=== PATIENT | female | born 1950 | race Caucasian/White ===

== ENCOUNTER 2019-11-19 06:45 | Day surgery (SDC) | payer MEDICARE ==
[~2019-11-19] VITALS: Ht 152.4 cm; Wt 105.2 kg
[~2019-11-19 06:45] MED LIST: AMOXICILLIN500 MG PO; ANTIBIOT EAR11 AS; ASPIRIN PO; BACTRIM DS1 TAB PO; BAYER ASPIRIN E81 MG PO; BAYER ASPIRIN325 MG PO; CALTRATE 600+D1 CHW PO; CIPRODEX1 ML AS; CIPROFLOXACN500 MG PO; COZAAR50 MG PO; FISH OIL1200 M1 PO; HYDROCHLOROT25 MG PO; LORTAB 7.5 PO; METFORMIN500 MG PO; METOPROLOL50 M1 PO; NAPROSYN500 MG PO; NASONEX50 MCG/AC; PAROXETINE10 MG PO; PEPCID PO
[2019-11-19] MEDS ORDERED: HYDROCHLOROT25 MG PO (07:15)
[2019-11-19 08:35] VITALS: BP 102/54
== END 2019-11-19 08:50 | disposition home or self-care (01) ==
LOC: ENDO 06:45 → ORM 09:00 → ENDO 09:00 → ORM 10:00
PROVIDERS: ATTEND Surgery
PROC: 0DJD8ZZ Inspection of Lower Intestinal Tract, Via Natural or Artificial Opening Endoscopic (ICD-10-PCS; principal; 2019-11-19)
DX: Z12.11 Encounter for screening for malignant neoplasm of colon (principal); D17.5 Benign lipomatous neoplasm of intra-abdominal organs; Z87.19 Personal history of other diseases of the digestive system; Z20.828 Contact with and (suspected) exposure to other viral communicable diseases

== ENCOUNTER 2020-07-05 11:22 | Emergency (ER) | payer MEDICARE ==
[~2020-07-05] VITALS: Ht 152.4 cm; Wt 104.5 kg
[~2020-07-05 11:22] MED LIST changes: +METFORMIN500 M2 PO; -METFORMIN500 MG PO
[2020-07-05] MEDS ORDERED: HYDROCHLORO25 MG/TAB PO (11:48)
[2020-07-05] MEDS ORDERED: PAROXETINE HCL10 MG PO (11:48)
[2020-07-05] MEDS ORDERED: METOPROLOL SUCC50 MG PO (11:49)
[2020-07-05] MEDS ORDERED: FAMOTIDINE20 M3 PO (11:50)
[2020-07-05] MEDS ORDERED: PAROXETINE HYDR20 MG PO (12:07)
[2020-07-05] MEDS ORDERED: METFORMIN HCL1000 MG PO (12:07)
[2020-07-05] MEDS ORDERED: FLEXERIL5 M1 PO (13:40)
[2020-07-05 13:58] VITALS: BP 149/84
== END 2020-07-05 13:58 | disposition home or self-care (01) ==
LOC: ED 11:22
DX: S40.021A Contusion of right upper arm, initial encounter (principal); E11.9 Type 2 diabetes mellitus without complications; I11.0 Hypertensive heart disease with heart failure; I50.9 Heart failure, unspecified; K21.9 Gastro-esophageal reflux disease without esophagitis; F17.210 Nicotine dependence, cigarettes, uncomplicated; W10.9XXA Fall (on) (from) unspecified stairs and steps, initial encounter; Y92.009 Unspecified place in unspecified non-institutional (private) residence as the place of occurrence of the external cause; Z79.84 Long term (current) use of oral hypoglycemic drugs